=== PATIENT | male | born 1950 | race Caucasian/White ===

== ENCOUNTER 2020-02-09 10:30 | Emergency (ER) | payer MEDICARE ==
[~2020-02-09 10:30] MED LIST: Sodium Chloride 0.9% 1,000 ML BAG ONE
[2020-02-09] MEDS ORDERED: Iopamidol 370 76% 100 ML VIAL ONE (11:49)
[2020-02-09 12:09] LABS: #Basophils 0.1 thou/uL (0.0-0.2); #Eosinphils 0.1 thou/uL (0.0-0.7); #Lymphocytes 0.7 thou/uL (1.20-3.40); #Monocytes 0.8 thou/uL (0.11-0.59); #Neutrophils 5.3 thou/uL (1.40-6.50); %Eosinophils 0.8 % (0.0-10.0); %Lymphocytes 10.6 % (21.0-51.0); %Monocytes 11.3 % (0.0-10.0); %Neutrophils 76.4 % (42.0-75.0); Hemoglobin 15.4 g/dL (14.0-18.0); Mean Corpuscular HGB CONC 30.9 g/dL (32.0-36.0); Mean Corpuscular Hemoglobin 27.9 pg (27.0-31.0); Mean Corpuscular Volume 90.3 fL (78.0-98.0); Mean Platelet Volume 11.6 fL (7.4-10.4); Platelet Count 210 thou/uL (130-400); Red Blood Cell (RBC) Count 5.53 mill/uL (4.70-6.10); White Blood Cell (WBC) Count 6.9 thou/uL (4.8-10.8)
[2020-02-09 12:25] LABS: Lipase 70 U/L (8-78)
[2020-02-09 12:26] LABS: ALT (SGPT) 124 U/L (8-55); AST (SGOT) 182 U/L (5-34); Albumin 3.8 g/dL (3.4-4.8); Alkaline Phosphatase 537 U/L (40-110); Anion Gap 20 mmol/L (10-20); BUN (Urea Nitrogen) 24 mg/dL (8.4-25.7); Bilirubin, Total 6.9 mg/dL (0.2-1.2); Calc. Creatinine Clearance 0 mL/min (70-130); Calcium 10.1 mg/dL (7.8-10.44); Carbon Dioxide 26 mmol/L (23-31); Chloride 98 mmol/L (98-107); Estimated GFR-MDRD 39; Glucose 118 mg/dL (80-115); Potassium 4.1 mmol/L (3.5-5.1); Protein, Total 8.8 g/dL (5.8-8.1); Sodium 140 mmol/L (136-145)
[2020-02-09 12:32] LABS: Bilirubin Large (Negative); Blood, Urine Trace (Negative); Glucose, Urine (Dipstick) Negative (Negative); Ketone, Urine Trace mg/dL (Negative); Leukocyte Negative (Negative); Nitrite Negative (Negative); Protein, Urine (Dipstick) > or equal to 300 mg/dL (Neg-Trace); Specific Gravity, Urine 1.025 (1.005-1.030); Urobilinogen 0.2 mg/dL (Less than 2)
[2020-02-09 12:33] LABS: Clarity Cloudy (Clear); RBC/HPF 0-3 HPF (0-3); WBC/HPF None Seen HPF (0-3)
[2020-02-09 12:34] LABS: Bacteria/HPF 1+ HPF (None Seen); Squamous Epithelial 0-3 HPF (0-3)
[2020-02-09 12:35] LABS: Mucous/LPF 2+ LPF (<2+)
[2020-02-09] MEDS ORDERED: Ondansetron PF 4 MG/2 ML Vial ONE (12:37)
[2020-02-09 12:44] LABS: Anisocytosis SLIGHT = 6-15 cells (100X) (0-5/hpf); Platelet Morphology Comment Appears Adequate
--- NOTE | 2020-02-09 13:36 | CT ---
EXAM: ABDOMEN AND PELVIC CT SCAN WITH IV CONTRAST: 02/09/20 HISTORY: Pain, recently diagnosed with liver cancer. FINDINGS: Small left pleural effusion with some nodular pleural based parenchymal changes in the left lower lob e measuring 2.6 x 4.0 cm possibly representing focal pneumonia versus a focal area of atelectasis. Un derlying neoplasm cannot be excluded. Numerous masses of low attenuation density throughout the liver, the largest in the left lobe measure s 8.6 x 10 cm. There are also enlarged oscar hepatis and peripancreatic nodes. Several in the 2.1 cm diameter range and the largest one between the portal vein and inferior vena cava measures 3.6 x 4.9 cm in AP and transverse dimensions. There is some displacement of the head of the pancreas secondary to this. The gallbladder is borderline distended. There is a 1.4 cm diameter nodular area between the gallbladder and anterior duodenum probably an enlarged lymph node as well. Small aortocaval lymph no de up to 0.7 cm short axis. No evidence for pancreatic mass. Spleen and adrenal glands appear unremar kable. Nonobstructing 0.6 x 1.0 cm diameter renal calculus in the right renal pelvis without evidence for obstruction. No ureteral calculus or acute ureteral obstruction. No CT evidence for acute append icitis. Minimal free fluid in the pelvis. Bilateral fat containing inguinal hernias. IMPRESSION: 1. Very extensive multiple masses within the liver as above. 2. Fairly extensive oscra hepatis and peripancreatic lymphadenopathy. 3. Small left pleural effusion with posterior left lower lobe pleural based mass opacity, possibly a n area of focal atelectasis, pneumonia or neoplasm. 4. Nonobstructing right renal calculus. 5. Small amount of free fluid in the pelvis. 6. Other findings as above. POS: RRE
== END 2020-02-09 15:55 | disposition home or self-care (01) ==
LOC: MADERS 10:30
DX: E86.0 Dehydration (principal); R74.0 Nonspecific elevation of levels of transaminase and lactic acid dehydrogenase [LDH]; R11.2 Nausea with vomiting, unspecified; C22.8 Malignant neoplasm of liver, primary, unspecified as to type; Z79.891 Long term (current) use of opiate analgesic; Z79.82 Long term (current) use of aspirin; Z79.899 Other long term (current) drug therapy
CPT/HCPCS: 74177; 80053; 81003; 81015; 83605; 83690; 85025; 93005; 96361; 96374; J2405; J7050; Q9967